=== PATIENT | female | born 2000 | race Caucasian/White ===

== ENCOUNTER 2018-04-05 23:04 | Emergency (ER) | payer SELFPAY ==
[~2018-04-05] VITALS: Ht 167.6 cm; Wt 70.0 kg
[2018-04-05 23:12] VITALS: TEMP 98.9
[2018-04-06 00:09] LABS: COLLECTION METHOD CLEAN CATCH
[2018-04-06 00:19] LABS: MUCOUS Present /lpf; PH 6 (5-8); URINE APPEARANCE Hazy; URINE BACTERIA Rare /hpf; URINE BILIRUBIN Negative (NEGATIVE); URINE BLOOD 2+ (NEGATIVE); URINE COLOR Yellow; URINE GLUCOSE Negative (NEGATIVE); URINE KETONE 2+ (NEGATIVE); URINE LEUKOCYTE ESTERASE Negative (NEGATIVE); URINE NITRATE Negative (NEGATIVE); URINE PROTEIN(semi-quant) 2+ (NEGATIVE); URINE RBC 20-50 /hpf
[2018-04-06] MEDS ORDERED: NORCO 325 MG-51 TAB PO (01:39)
[2018-04-06] MEDS ORDERED: MASON NATURAL2000 IU PO (01:39)
[2018-04-06 02:08] LABS: HEMATOCRIT 41.8 % (35.0-45.0); MEAN CELL VOLUME 82 fl (80.0-95.0); MEAN CORPUSCULAR HEMOGLOBIN 27 pg (26.0-32.0); MEAN CORPUSCULAR HGB CONC 34 g/dl (33.0-37.0); MEAN PLATELET VOLUME 10.3 fl (7.4-10.4); PLATELET COUNT 311 K/mm3 (130-400); RED BLOOD COUNT 5.13 M/mm3 (4.10-5.30); REDCELL DISTRIBUTION WIDTH-CV 12.3 % (11.5-14.5)
[2018-04-06 02:20] LABS: ALBUMIN 4.4 gm/dL (3.5-5.0); BILIRUBIN,TOTAL 0.6 mg/dL (0.0-1.0); CREATININE, serum 0.6 mg/dL (0.52-1.25); POTASSIUM 3.5 mmol/L (3.4-5.0); TOTAL PROTEIN 7.8 gm/dL (6.4-8.2)
[2018-04-06 02:41] LABS: METAMYELOCYTE 1 % (0-0); NEUTROPHILS 76 % (42.0-75.2)
[2018-04-06 02:42] LABS: LYMPHOCYTE 20 % (20.0-51.0)
[2018-04-06 02:43] LABS: PLATELET ESTIMATE NORMAL (NORMAL)
[2018-04-06] MEDS ORDERED: ZOFRAN 4MG T4 MG/TAB PO (02:43)
[2018-04-06] MEDS ORDERED: CARAFATE 1GM1 G PO (06:13)
[2018-04-06] MEDS ORDERED: PRIL40 PO (06:13)
[2018-04-06 08:18] VITALS: BP 125/58; PULSE 73
[2018-04-06 08:50] LABS: PATHOLOGY DIFF REVIEW OK
== END 2018-04-06 08:21 | disposition home or self-care (01) ==
LOC: COL.ER 23:04
PROVIDERS: Nurse Practitioner Primary Care
DX: R11.2 Nausea with vomiting, unspecified (principal)
CPT/HCPCS: J1885; J2405; J2550; J7030